=== PATIENT | male | born 1950 | race Caucasian/White ===

== ENCOUNTER 2017-12-25 16:12 | Inpatient (IN) ==
--- NOTE | 2017-12-25 17:22 | History & Physical Report ---
*Admission Date: 12/25/17 *Chief complaint: "Toe draining and smells" *History of present illness: Mr. Worley is a 67-year-old male with history of hypertension, arthritis, morbid obesity, and accidental amputation of toes 2 years ago who presents with drainage and smell coming from right foot. He reports this morning noticing redness along the end of his right foot. He suffered a traumatic lawnmower accident approximately 2 years ago where multiple toes were amputated leaving only a portion of his great toe and pinky toe on the right foot. He has been struggling with lower extreme it he edema of the right leg for the past few weeks with redness and pitting edema up to the knee. He reports noting wo rsening redness from the base of his toes distal over the past day or 2. When removing his shoe in clinic today he noted drainage coming from the end of his right great toe and a large silver dollar size purple/black lesion at the end of the toe. He reports he has had long-time drainage from a scab/callus end of that toe for over a year however the current appearance is new. His who was present with him remarks on the smell being a new finding to her recollection. Patient denies any fevers, nausea vomiting, recent antibiotics, numbness or tingling in his feet, significant pain with ambulation. Denies history of diabetes or abnormal blood sugars. Admitted to the hospital directly from clinic for further assessment, BX consultation for possible debridement and amputation. [facility] History I have reviewed the patient's past medical history: Yes Medical History: Reports:: Hypertension Amputation: Yes (Second third and fourth toe on right foot) - *Social History Smoking Status: Never smoker *Family Hx:: Diabetes, Hypertension Review of Systems - Review of Systems Review of systems:: pertinent systems reviewed and negative unless documented below Exam - *Routine HEENT Exam Head: Present: normocephalic, atraumatic Eye: Present: EOMI, PERRL ENT: Present: mucous membranes moist - *Routine Neck Exam Present: supple, full ROM. Absent: JVD - *Routine Respiratory Exam Present: CTA bilaterally. Absent: accessory muscle use, prolonged expiratory phase, wheezes, crackles - *Routine Cardiovascular Exam Present: RRR, Normal S1, Normal S2. Absent: murmur - *Routine Abdominal Exam Present: soft, normoactive bowel sounds - *Routine Rectal Exam Patient deferred: visual exam - *Routine Exam Patient deferred: penile exam - *Routine Extremities Exam Present: edema. Absent: cyanosis, clubbing Comments: right LE, erythema to mid lew, pitting edema to knee. Black necrotic lesion at tip of right great toe approximately 2-1/2 cm in diameter, serous foul-smelling drainage coming from tip of toe, large appearing callus on plantar surface of great toe, erythema to distal forefoot - *Routine Skin Exam Present: intact, erythema. Absent: cyanosis - *Routine Neurological Exam Present: alert, oriented X3, CN II-XII intact. Absent: altered mental status Assessment and Plan (1) Class 3 severe obesity due to excess calories in adult Current visit: Yes Status: Chronic Qualifiers: Serious obesity comorbidity presence: without serious comorbidity Category: Medical Code(s): E66.01 - Morbid (severe) obesity due to excess calories Complicates all aspects of care (2) Cellulitis Current visit: Yes Status: Acute Qualifiers: Site of cellulitis: extremity Site of cellulitis of extremity: toe Laterality: right Qualified Code(s): L03.031 - Cellulitis of right toe Category: Medical Code(s): L03.90 - Cellulitis, unspecified Concern for infection with erythema, warmth. Hold on antibiotics at this time as there is no systemic symptoms. -Consulted orthopedics for wound debridement and possible amputation. -For antibiotics until wound/tissue culture obtained (3) Gangrene of toe of right foot Current visit: Yes Status: Acute Category: Medical Code(s): I96 - Gangrene, not elsewhere classified Smell and appearance of toe concerning for gangrene. Orthopedics consulted as per above. Appreciate recommendations
[2017-12-25 17:38] LABS: Basophils # 0.1 K/mm3 (0-0.2); Basophils % 0.6 % (0.1-2.0); Eosinophils # 0.2 K/mm3 (0.0-0.4); Eosinophils % 1.8 % (0.1-12.0); Hematocrit 39.9 % (42.0-52.0); Hemoglobin 12.8 g/dL (14.1-18.0); Lymphocytes # 2.1 K/mm3 (0.7-4.5); Lymphocytes % 21.3 % (10-50); Mean Corpuscular HGB Conc 31.9 g/dL (31.8-35.4); Mean Corpuscular Hemoglobin 28.3 pg (27.0-31.2); Mean Corpuscular Volume 88.6 fl (80-94); Mean Platelet Volume 6.8 fl (7.4-10.4); Monocytes # 0.7 K/mm3 (0.1-1.0); Neutrophils % 69.3 % (37.0-80.0); Platelet Count 261 K/mm3 (142-424); Red Blood Count 4.51 M/mm3 (4.60-6.20)
[2017-12-25 18:03] LABS: Albumin Level 3.6 gm/dL (3.4-5.0); Albumin/Globulin Ratio 0.9 (1.1-1.8); Anion Gap 10.7 mEq/L (5-15); Bilirubin,Total 0.4 mg/dL (0.2-1.0); Globulin 4.1 gm/dl (1.3-3.2); Potassium 3.7 mmoL/L (3.5-5.1); Total Protein,Serum 7.7 gm/dL (6.4-8.2)
--- NOTE | 2017-12-25 19:33 | Consult Report ---
*Admission Date: 12/25/17 Review of Systems - Review of Systems Review of systems:: pertinent systems reviewed and negative unless documented below [facility] History I have reviewed the patient's past medical history: Yes Medical History: Reports:: Hypertension Denies:: Cancer, Diabetes Mellitus Type 1, Diabetes Mellitus Type 2, MRSA Other Surgeries: Yes: Other (right foot) Amputation: Yes (Second third and fourth toe on right foot) - *Social History Educational Level: Completed High School Smoking Status: Never smoker Alcohol Intake: never Occupational Status: retired Housing: house Household Members: spouse - Psychiatric History Expresses thoughts of harming self/others: None Suicide Plan Description: No Plan *Family Hx:: Diabetes, Hypertension Meds Home Medications Medication Instructions Recorded Confirmed Type Lisinopril/Hydrochlorothiazide 1 tab PO DAILY 12/25/17 12/25/17 History [Lisinopril-Hctz 20-25 mg Tab] Meloxicam 15 mg PO DAILY 12/25/17 12/25/17 History Allergies Allergy/AdvReac Type Severity Reaction Status Date / Time No Known Allergies Allergy Verified 12/25/17 17:36 Exam Vital signs and Labs for Last 24 Hours: Temp Pulse Resp BP Pulse Ox 98.3 F 86 16 153/73 H 96 12/25/17 17:56 12/25/17 17:56 12/25/17 17:56 12/25/17 17:56 12/25/17 17:56 Laboratory Results - last 24 hr 12/25/17 17:30: WBC 10.0, RBC 4.51 L, Hgb 12.8 L, Hct 39.9 L, MCV 88.6, MCH 28.3, MCHC 31.9, RDW 14.0, Plt Count 261, MPV 6.8 L, Neut % (Auto) 69.3, Lymph % (Auto) 21.3, [place] % (Auto) 7.0, Eos % (Auto) 1.8, Baso % (Auto) 0.6, Neut # (Auto) 7.0, Lymph # (Auto) 2.1, [place] # (Auto) 0.7, Eos # (Auto) 0.2, Baso # (Auto) 0.1 12/25/17 17:30: Sodium 139, Potassium 3.7, Chloride 102, Carbon Dioxide 30, Anion Gap 10.7, BUN 17, Creatinine 0.88, Estimated Creat Clear 74, Estimated GFR 87, Est GFR ( Amer) 105, Glucose 127 H, Calcium 9.0, Total Bilirubin 0.4, AST 13 L, ALT 22, Alkaline Phosphatase 89, Total Protein 7.7, Albumin 3.6, Globulin 4.1 H, Albumin/Globulin Ratio 0.9 L I & O for Last 24 hours: Intake & Output 12/23/17 12/24/17 12/25/17 12/26/17 11:59 11:59 11:59 11:59 Weight 309 lb 9 oz Results - Labs Result Diagrams: 12/25/17 17:30 12/25/17 17:30 Labs: Abnormal lab results 12/25/17 12/25/17 Range/Units 17:30 17:30 RBC 4.51 L (4.60-6.20) M/mm3 Hgb 12.8 L (14.1-18.0) g/dL Hct 39.9 L (42.0-52.0) % MPV 6.8 L (7.4-10.4) fl Glucose 127 H (74-106) mg/dL AST 13 L (15-37) U/L Globulin 4.1 H (1.3-3.2) gm/dl Albumin/Globulin Ratio 0.9 L (1.1-1.8) H & H 12/25/17 Range/Units 17:30 Hgb 12.8 L (14.1-18.0) g/dL Hct 39.9 L (42.0-52.0) % All other labs normal. Assessment and Plan (1) Class 3 severe obesity due to excess calories in adult Current visit: Yes Status: Chronic Qualifiers: Serious obesity comorbidity presence: without serious comorbidity Category: Medical Code(s): E66.01 - Morbid (severe) obesity due to excess calories (2) Cellulitis Current visit: Yes Status: Acute Qualifiers: Site of cellulitis: extremity Site of cellulitis of extremity: toe Laterality: right Qualified Code(s): L03.031 - Cellulitis of right toe Category: Medical Code(s): L03.90 - Cellulitis, unspecified (3) Gangrene of toe of right foot Current visit: Yes Status: Acute Category: Medical Code(s): I96 - Gangrene, not elsewhere classified - Assessment and plan all Dx Assessment and Plan for all problems:: I have reviewed the clinical findings with the patient. I have discussed the diagnosis, natural history and management options in detail including both nonsurgical and surgical. He has had a nonhealing ulcer/lesion for more than 25 years with development of gangrene at the tip of the great toe associated with cellulitis extending onto the leg. He is non-diabetic and non-smoker. I have recommended, x-ray of right foot, culture and sensitivity, nonadherent wound dressings, IV antibiotics as per Dr. Estrada. As part of further evaluation, I have recommended MRI scan of his right foot with and without contrast to evaluate for any bone involvement. Also recommend cardiology consultation for evaluation of circulation to his foot and any necessary interventions as appropriate. I have told the patient that he is likely to require surgical intervention including amputation of the great toe. All his questions were answered and he verbalized a good understanding. I would follow-up with the MRI results. Thank you for the opportunity to participate in the care of this pleasant patient.
--- NOTE | 2017-12-26 08:09 | Progress Note ---
Internal Medicine - PN: Subj *Date: 12/26/17 *Time: 08:07 Interval history: Patient rested well, has no complaints of significant pain. Orthopedic consultation note reviewed. Cardiology consultation pending. Exam Vital signs and Labs for Last 24 Hours: Temp Pulse Resp BP Pulse Ox 97.6 F 74 16 139/79 93 L 12/26/17 04:00 12/26/17 04:00 12/26/17 04:00 12/26/17 04:00 12/26/17 04:00 Laboratory Results - last 24 hr 12/25/17 17:30: WBC 10.0, RBC 4.51 L, Hgb 12.8 L, Hct 39.9 L, MCV 88.6, MCH 28.3, MCHC 31.9, RDW 14.0, Plt Count 261, MPV 6.8 L, Neut % (Auto) 69.3, Lymph % (Auto) 21.3, [place] % (Auto) 7.0, Eos % (Auto) 1.8, Baso % (Auto) 0.6, Neut # (Auto) 7.0, Lymph # (Auto) 2.1, [place] # (Auto) 0.7, Eos # (Auto) 0.2, Baso # (Auto) 0.1 12/25/17 17:30: Sodium 139, Potassium 3.7, Chloride 102, Carbon Dioxide 30, Anion Gap 10.7, BUN 17, Creatinine 0.88, Estimated Creat Clear 74, Estimated GFR 87, Est GFR ( Amer) 105, Glucose 127 H, Calcium 9.0, Total Bilirubin 0.4, AST 13 L, ALT 22, Alkaline Phosphatase 89, Total Protein 7.7, Albumin 3.6, Globulin 4.1 H, Albumin/Globulin Ratio 0.9 L I & O for Last 24 hours: Intake & Output 12/23/17 12/24/17 12/25/17 12/26/17 11:59 11:59 11:59 11:59 Intake Total 696 / 696 Balance 696 / 696 Weight 309 lb 5 oz Microbiology Reports for the Last 24 Hours: Microbiology 12/25/17 20:20 Toe,Right Great Gram Stain - Final Narrative: Patient's cardiopulmonary exam is unremarkable, he is alert, oriented, clear lungs. Heart rate regular. Abdomen soft and nontender. Left lower leg is unremarkable. Right leg in bandage. His edema in the lew is improved as he is elevated his leg in the hospital bed. I reviewed labs and preliminary culture results and x-ray reports and films. Assessment and Plan (1) Class 3 severe obesity due to excess calories in adult Current visit: Yes Status: Chronic Qualifiers: Serious obesity comorbidity presence: without serious comorbidity Category: Medical Code(s): E66.01 - Morbid (severe) obesity due to excess calories (2) Cellulitis Current visit: Yes Status: Acute Qualifiers: Site of cellulitis: extremity Site of cellulitis of extremity: toe Laterality: right Qualified Code(s): L03.031 - Cellulitis of right toe Category: Medical Code(s): L03.90 - Cellulitis, unspecified (3) Gangrene of toe of right foot Current visit: Yes Status: Acute Category: Medical Code(s): I96 - Gangrene, not elsewhere classified - Assessment and plan all Dx Assessment and Plan for all problems:: Cellulitic area on leg is improving with elevation. Patient clearly is dry gangrene, MRI pending. Patient is without white count, fever or red streaking from the foot. At this point we will hold IV antibiotics until intraoperative cultures are obtained. Again I think patient will need amputation of the great toe stump. Orthopedic evaluation pending and ongoing. Orthopedics wishes cardiology evaluation for possible angiogram. I certainly understand this thought, however patient is not diabetic and has no smoking history, and this seems like a fairly low yield evaluation.
--- NOTE | 2017-12-26 08:59 | Consult Report ---
History of Present Illness Consult date: 12/26/17 Requesting physician: Hardik Estrada Chief complaint: gangrene of right toe Additional Medical History:: 1. HTN 2. Obesity 3. Traumatic amputation of 2nd, 3rd and 4th toes with partial amputation of 1st and 4th toes due to lawnmower accident, about 1992 History of present illness: Mr. Worley is a 67-year-old male with history of hypertension, arthritis, morbid obesity, and accidental amputation of toes 2 years ago who presents with drainage and smell coming from right foot. He reports this morning noticing redness along the end of his right foot. He suffered a traumatic lawnmower accident approximately 2 years ago where multiple toes were amputated leaving only a portion of his great toe and pinky toe on the right foot. He has been struggling with lower extreme it he edema of the right leg for the past few weeks with redness and pitting edema up to the knee. He reports noting worsening redness from the base of his toes distal over the past day or 2. When removing his shoe in clinic today he noted drainage coming from the end of his right great toe and a large silver dollar size purple/black lesion at the end of the toe. He reports he has had long-time drainage from a scab/callus end of that toe for over a year however the current appearance is new. His who was present with him remarks on the smell being a new finding to her recollection. Patient denies any fevers, nausea vomiting, recent antibiotics, numbness or tingling in his feet, significant pain with ambulation. Denies history of diabetes or abnormal blood sugars. Admitted to the hospital directly from clinic for further assessment, BX consultation for possible debridement and amputation. The above per Dr. Estrada Patient denies any history of cardiac problems, TIA/CVA, blood in his bowels or urine. [facility] History Medical History: Reports:: Hypertension Denies:: Cancer, Diabetes Mellitus Type 1, Diabetes Mellitus Type 2, MRSA Other Surgeries: Yes: Other (right foot) Amputation: Yes (Second third and fourth toe on right foot) - *Social History Educational Level: Completed High School Smoking Status: Never smoker Alcohol Intake: never Occupational Status: retired Housing: house Household Members: spouse - Psychiatric History Expresses thoughts of harming self/others: None Suicide Plan Description: No Plan *Family Hx:: Diabetes, Hypertension Meds Home Medications Medication Instructions Recorded Confirmed Type Lisinopril/Hydrochlorothiazide 1 tab PO DAILY 12/25/17 12/25/17 History [Lisinopril-Hctz 20-25 mg Tab] Meloxicam 15 mg PO DAILY 12/25/17 12/25/17 History Allergies Allergy/AdvReac Type Severity Reaction Status Date / Time No Known Allergies Allergy Verified 12/25/17 17:36 Review of Systems - *Cardiovascular Denies chest pain, Denies shortness of breath with activity - *Respiratory Denies shortness of breath with activity - *Gastrointestinal Denies abdominal pain - *Genitourinary Denies blood in urine - *Musculoskeletal Reports joint pain Exam Vital signs and Labs for Last 24 Hours: Temp Pulse Resp BP Pulse Ox 98.1 F 70 20 135/70 91 L 12/26/17 08:00 12/26/17 08:00 12/26/17 08:00 12/26/17 08:00 12/26/17 08:00 Laboratory Results - last 24 hr 12/25/17 17:30: WBC 10.0, RBC 4.51 L, Hgb 12.8 L, Hct 39.9 L, MCV 88.6, MCH 28.3, MCHC 31.9, RDW 14.0, Plt Count 261, MPV 6.8 L, Neut % (Auto) 69.3, Lymph % (Auto) 21.3, [place] % (Auto) 7.0, Eos % (Auto) 1.8, Baso % (Auto) 0.6, Neut # (Auto) 7.0, Lymph # (Auto) 2.1, [place] # (Auto) 0.7, Eos # (Auto) 0.2, Baso # (Auto) 0.1 12/25/17 17:30: Sodium 139, Potassium 3.7, Chloride 102, Carbon Dioxide 30, Anion Gap 10.7, BUN 17, Creatinine 0.88, Estimated Creat Clear 74, Estimated GFR 87, Est GFR ( Amer) 105, Glucose 127 H, Calcium 9.0, Total Bilirubin 0.4, AST 13 L, ALT 22, Alkaline Phosphatase 89, Total Protein 7.7, Albumin 3.6, Globulin 4.1 H, Albumin/Globulin Ratio 0.9 L I & O for Last 24 hours: Intake & Output 12/23/17 12/24/17 12/25/17 12/26/17 11:59 11:59 11:59 11:59 Intake Total 696 / 696 Balance 696 / 696 Weight 309 lb 5 oz Microbiology Reports for the Last 24 Hours: Microbiology 12/25/17 20:20 Toe,Right Great Gram Stain - Final - *Routine Neck Exam Present: supple. Absent: JVD, carotid bruit - *Routine Respiratory Exam Present: CTA bilaterally. Absent: accessory muscle use, rales, rhonchi, wheezes - *Routine Cardiovascular Exam Present: RRR. Absent: murmur, gallop, rubs - *Routine Abdominal Exam Present: soft. Absent: tenderness, distended, guarding - *Routine Extremities Exam Present: edema. Absent: calf tenderness Comments: Right foot is wrapped in gauze. Patient does have some chronic stasis changes to the lower leg with edema and no palpable pulses of the right foot but it is warm. - *Routine Neurological Exam Present: alert, oriented X3, moving all extremities Assessment and Plan (1) Class 3 severe obesity due to excess calories in adult Current visit: Yes Status: Chronic Qualifiers: Serious obesity comorbidity presence: without serious comorbidity Category: Medical Code(s): E66.01 - Morbid (severe) obesity due to excess calories (2) Cellulitis Current visit: Yes Status: Acute Qualifiers: Site of cellulitis: extremity Site of cellulitis of extremity: toe Laterality: right Qualified Code(s): L03.031 - Cellulitis of right toe Category: Medical Code(s): L03.90 - Cellulitis, unspecified (3) Gangrene of toe of right foot Current visit: Yes Status: Acute Category: Medical Code(s): I96 - Gangrene, not elsewhere classified - Assessment and plan all Dx Assessment and Plan for all problems:: Plan to proceed with right lower extremity angiogram with possible intervention if needed. Further recommendations to follow above.
--- NOTE | 2017-12-26 16:37 | Consult Report ---
*Admission Date: 12/25/17 *Chief complaint: Right hallux gangrene *History of present illness: Patient admitted for red gangrenous right great toe with drainage. 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 He sees a seating upholsterer in [place], last seen in 2017. He states he has a history of right hallux callus with ulcer that will heal and recur. He notes symptoms started several days ago. Phone consult by Ortho, Dr. Brush for a second opinion regarding right great toe possible amputation Review of Systems - Constitutional Reports lack of energy, Denies chills - Eyes Denies blurry vision - ENT Denies dizziness - *Cardiovascular Denies shortness of breath - *Respiratory Denies shortness of breath - *Gastrointestinal Reports nausea - *Genitourinary Reports urinary frequency - *Musculoskeletal Reports deformity, Denies numbness - Integumentary/Breasts Reports hair loss, Reports change in skin color, Reports skin ulcer [facility] History Medical History: Reports:: Hypertension Denies:: Cancer, Diabetes Mellitus Type 1, Diabetes Mellitus Type 2, MRSA Other Surgeries: Yes: Other (right foot) Amputation: Yes (Second third and fourth toe on right foot) - *Social History Educational Level: Completed High School Smoking Status: Never smoker Alcohol Intake: never Occupational Status: retired Housing: house Household Members: spouse - Psychiatric History Expresses thoughts of harming self/others: None Suicide Plan Description: No Plan *Family Hx:: Diabetes, Hypertension Meds Home Medications Medication Instructions Recorded Confirmed Type Lisinopril/Hydrochlorothiazide 1 tab PO DAILY 12/25/17 12/25/17 History [Lisinopril-Hctz 20-25 mg Tab] Meloxicam 15 mg PO DAILY 12/25/17 12/25/17 History Allergies Allergy/AdvReac Type Severity Reaction Status Date / Time No Known Allergies Allergy Verified 12/25/17 17:36 Exam Vital signs and Labs for Last 24 Hours: Temp Pulse Resp BP Pulse Ox 97.6 F 74 17 135/75 98 12/26/17 15:00 12/26/17 15:25 12/26/17 15:25 12/26/17 15:25 12/26/17 15:25 Laboratory Results - last 24 hr 12/25/17 17:30: WBC 10.0, RBC 4.51 L, Hgb 12.8 L, Hct 39.9 L, MCV 88.6, MCH 28.3, MCHC 31.9, RDW 14.0, Plt Count 261, MPV 6.8 L, Neut % (Auto) 69.3, Lymph % (Auto) 21.3, [place] % (Auto) 7.0, Eos % (Auto) 1.8, Baso % (Auto) 0.6, Neut # (Au to) 7.0, Lymph # (Auto) 2.1, [place] # (Auto) 0.7, Eos # (Auto) 0.2, Baso # (Auto) 0.1 12/25/17 17:30: Sodium 139, Potassium 3.7, Chloride 102, Carbon Dioxide 30, Anion Gap 10.7, BUN 17, Creatinine 0.88, Estimated Creat Clear 74, Estimated GFR 87, Est GFR ( Amer) 105, Glucose 127 H, Calcium 9.0, Total Bilirubin 0.4, AST 13 L, ALT 22, Alkaline Phosphatase 89, Total Protein 7.7, Albumin 3.6, Globulin 4.1 H, Albumin/Globulin Ratio 0.9 L 12/26/17 08:50: ESR 34 H 12/26/17 08:50: C-Reactive Protein 4.2 H I & O for Last 24 hours: Intake & Output 12/24/17 12/25/17 12/26/17 12/27/17 11:59 11:59 11:59 11:59 Intake Total 696 / 696 Output Total 0 / 0 Balance 696 / 696 0 / 0 Weight 309 lb 5 oz 309 lb 5.007 oz Microbiology Reports for the Last 24 Hours: Microbiology 12/25/17 20:20 Toe,Right Great Gram Stain - Final - *Routine HEENT Exam Head: Present: normocephalic ENT: Present: mucous membranes moist - *Routine Neck Exam Absent: JVD - *Routine Respiratory Exam Absent: respiratory distress - *Routine Cardiovascular Exam Present: RRR - *Routine Abdominal Exam Absent: tenderness - *Routine Rectal Exam Patient deferred: visual exam - *Routine Exam Patient deferred: penile exam - *Routine Extremities Exam Present: pulses intact, amputation - *Routine Skin Exam Present: dry, wounds. Absent: intact - *Routine Neurological Exam Present: alert, oriented X3, moving all extremities, normal tone - Detailed Lower Extremity Exam Top foot image: 1 - Right hallux discolored, warm to touch. Blister noted to tip of toe with purulence and gangrenous tissue. Under the sloughing blister, intact skin 70% granular and 20% fibrotic and 10% gangrene. Wound extends to deep fascia. No tracting deep to bone. Malodor noted. Localized redness, no ascending cellulitis. Palpable pulses. Results - Labs Result Diagrams: 12/25/17 17:30 12/25/17 17:30 Labs: Abnormal lab results 12/25/17 12/25/17 12/26/17 Range/Units 17:30 17:30 08:50 RBC 4.51 L (4.60-6.20) M/mm3 Hgb 12.8 L (14.1-18.0) g/dL Hct 39.9 L (42.0-52.0) % MPV 6.8 L (7.4-10.4) fl ESR 34 H (0-20) mm/hr Glucose 127 H (74-106) mg/dL AST 13 L (15-37) U/L C-Reactive Protein (0.0-0.9) mg/L Globulin 4.1 H (1.3-3.2) gm/dl Albumin/Globulin Ratio 0.9 L (1.1-1.8) 12/26/17 Range/Units 08:50 RBC (4.60-6.20) M/mm3 Hgb (14.1-18.0) g/dL Hct (42.0-52.0) % MPV (7.4-10.4) fl ESR (0-20) mm/hr Glucose (74-106) mg/dL AST (15-37) U/L C-Reactive Protein 4.2 H (0.0-0.9) mg/L Globulin (1.3-3.2) gm/dl Albumin/Globulin Ratio (1.1-1.8) H & H 12/25/17 Range/Units 17:30 Hgb 12.8 L (14.1-18.0) g/dL Hct 39.9 L (42.0-52.0) % All other labs normal. - Diagnostic results Ankle/Foot x-ray: report reviewed, image reviewed Ankle/Foot MRI: image reviewed (No definitive OM, possible subchondral cysts at HIPJ and 1st met head) Assessment and Plan (1) Class 3 severe obesity due to excess calories in adult Current visit: Yes Status: Chronic Qualifiers: Serious obesity comorbidity presence: without serious comorbidity Category: Medical Code(s): E66.01 - Morbid (severe) obesity due to excess calories (2) Cellulitis Current visit: Yes Status: Acute Qualifiers: Site of cellulitis: extremity Site of cellulitis of extremity: toe Laterality: right Qualified Code(s): L03.031 - Cellulitis of right toe Category: Medical Code(s): L03.90 - Cellulitis, unspecified (3) Gangrene of toe of right foot Current visit: Yes Status: Acute Category: Medical Code(s): I96 - Gangrene, not elsewhere classified - Assessment and plan all Dx Assessment and Plan for all problems:: Gangrene, cellulitis, Right hallux ulcer: Revasc procedure by Dr. Light 12/26/17: 1. Three vessel run off to LE I discussed with the patient the importance of proper hygiene and maintaining a clean healthy wound bed to avoid the infection spreading after re- vascularization. The wound was cleansed with betadine. Utilizing a 15 blade, blister was popped, wound culture obtained. The wound was sharply excisionally debrided through skin into sub q layer. Biofilm, necrotic tissue and fibrotic slough were debrided. The wound did extend to deep fascia. It did not track into the bone]. There was positive purulence noted superficially. No deep purulence. Wound culture and tissue culture obtained. Sheyla-wound cellulitis noted. Non-palpable popliteal lymph nodes. Post-debridement the wound base was: 70 % granular, 20 % fibrotic,. 10% necrotic. The wound measured ~ 3 x 4 x 0.2 cm. 1. Dressing applied: betadine dry sterile dressing 2. Wound care instructions given: change dressing daily with betadine soaked Adaptic, dry sterile dressing 3. NWB in post op shoe with DME assistance 4. Monitor for infection 5. Recommend d/c on oral antibiotics 6. Follow up in Podiatry office Wedn 09/01/17
--- NOTE | 2017-12-26 17:29 | Discharge Summary ---
General - General Admission date:: 12/25/17 Discharge date: 12/26/17 HPI HPI: Mr. Worley is a 67-year-old male with history of hypertension, arthritis, morbid obesity, and accidental amputation of toes 2 years ago who presents with drainage and smell coming from right foot. He reports this morning noticing redness along the end of his right foot. He suffered a traumatic lawnmower accident approximately 2 years ago where multiple toes were amputated leaving only a portion of his great toe and pinky toe on the right foot. He has been struggling with lower extreme it he edema of the right leg for the past few weeks with redness and pitting edema up to the knee. He reports noting worsening redness from the base of his toes distal over the past day or 2. When removing his shoe in clinic today he noted drainage coming from the end of his right great toe and a large silver dollar size purple/black lesion at the end of the toe. He reports he has had long-time drainage from a scab/callus end of that toe for over a year however the current appearance is new. His who was present with him remarks on the smell being a new finding to her recollection. Patient denies any fevers, nausea vomiting, recent antibiotics, numbness or tingling in his feet, significant pain with ambulation. Denies history of diabetes or abnormal blood sugars. Admitted to the hospital directly from clinic for further assessment, BX consultation for possible debridement and amputation. Hospital Course Hospital Course: Patient was admitted, labs were done including blood cultures and wound culture. White count initially was 10,000. Given lack of fever, need to await culture results and consultation antibiotics were not started but orthopedics was consulted, recommended cardiology evaluation for lower extremity runoff testing, which was accomplished today with angiogram which was unremarkable. Also MRI was done this morning revealing no evidence of bony involvement from infectious process. Orthopedics asked podiatry to be involved, see consult note: Recommended bedside debridement which was done. Cultures taken. No evidence of bony involvement on bedside debridement procedure per podiatry. Plan will be to discharge home today with walking boot, dressing changes as instructed through podiatry, Augmentin twice daily while cultures are pending and follow-up with podiatry in 1 week. Objective Vital signs: Temp Pulse Resp BP Pulse Ox 97.6 F 74 17 135/75 98 12/26/17 15:00 12/26/17 15:25 12/26/17 15:25 12/26/17 15:25 12/26/17 15:25 Narrative: Patient is alert, pleasant. Talkative. Oropharynx clear, no JVD. Morbid obesity limits exam findings. Lungs clear, heart rate regular, abdomen soft and nontender. Extremity exam reveals unremarkable left lower extremity. Please see podiatry notes for details of right lower extremity exam and postoperative status. Results Labs on day of discharge: Labs from last 24 hours 12/26/17 12/26/17 12/25/17 08:50 08:50 17:30 WBC RBC Hgb Hct MCV MCH MCHC RDW Plt Count MPV Neut % (Auto) Lymph % (Auto) [place] % (Auto) Eos % (Auto) Baso % (Auto) Neut # (Auto) Lymph # (Auto) [place] # (Auto) Eos # (Auto) Baso # (Auto) ESR 34 H Sodium 139 Potassium 3.7 Chloride 102 Carbon Dioxide 30 Anion Gap 10.7 BUN 17 Creatinine 0.88 Estimated Creat Clear 74 Estimated GFR 87 Est GFR ( Amer) 105 Glucose 127 H Calcium 9.0 Total Bilirubin 0.4 AST 13 L ALT 22 Alkaline Phosphatase 89 C-Reactive Protein 4.2 H Total Protein 7.7 Albumin 3.6 Globulin 4.1 H Albumin/Globulin Ratio 0.9 L 12/25/17 17:30 WBC 10.0 RBC 4.51 L Hgb 12.8 L Hct 39.9 L MCV 88.6 MCH 28.3 MCHC 31.9 RDW 14.0 Plt Count 261 MPV 6.8 L Neut % (Auto) 69.3 Lymph % (Auto) 21.3 [place] % (Auto) 7.0 Eos % (Auto) 1.8 Baso % (Auto) 0.6 Neut # (Auto) 7.0 Lymph # (Auto) 2.1 [place] # (Auto) 0.7 Eos # (Auto) 0.2 Baso # (Auto) 0.1 ESR Sodium Potassium Chloride Carbon Dioxide Anion Gap BUN Creatinine Estimated Creat Clear Estimated GFR Est GFR ( Amer) Glucose Calcium Total Bilirubin AST ALT Alkaline Phosphatase C-Reactive Protein Total Protein Albumin Globulin Albumin/Globulin Ratio DS: Diagnosis - Discharge Diagnosis (1) Class 3 severe obesity due to excess calories in adult Status: Chronic (2) Cellulitis Status: Acute (3) Gangrene of toe of right foot Status: Acute Discharge Plan - Patient Discharge Instructions ACTIVITY: Continue current activity (Walking boot for ambulation, dressing treatments per podiatry note) DIET: continue same diet Patient Instructions: DI for Cellulitis -- Adult - Follow up Plan Follow up with: Audra Moreno DPM [Staff Physician] - 1 week Disposition: Home, Self-Retirement Medications: Home Medications Medication Instructions Recorded Confirmed Type Lisinopril/Hydrochlorothiazide 1 tab PO DAILY 12/25/17 12/25/17 History [Lisinopril-Hctz 20-25 mg Tab] Meloxicam 15 mg PO DAILY 12/25/17 12/25/17 History Prescriptions/Medication Reconciliation: New Amoxicillin/Potassium Clav [Augmentin 875-125 Tablet] 1 tab PO Q12H #20 tab Continue Meloxicam 15 mg PO DAILY Lisinopril/Hydrochlorothiazide [Lisinopril-Hctz 20-25 mg Tab] 1 tab PO DAILY
== END 2017-12-26 19:23 | disposition home or self-care (01) ==
LOC: 2ND → OBSVTOIN 16:40
PROVIDERS: ADMIT Internal Medicine Adolescent Medicine; ATTEND Internal Medicine Adolescent Medicine

== ENCOUNTER → 2018-01-14 07:00 | Outpatient (CLI) | payer MEDICARE, OTHER, SELFPAY ==
--- NOTE | 2018-01-14 07:01 | CA_ITS ---
PROCEDURE: 2-D M-mode and color Doppler study INDICATIONS FOR THE TEST: Chest pain COPD Heart Murmur Tobacco Smoking Palpitations Fatigue Syncope Edema Hypertension+Diabetes Mellitus Rheumatic Fever SOB+ROWE Obesity Hyperlipidemia Family History HD Additional History LUDWIN PATIENT INFORMATION HEIGHT: 69 WEIGHT:313 GENDER: Male B/P:170/87 2-D/M-MODE INTERPRETATION: 2-D MEASUREMENTS OBSERVED VALUES IN CMS Right Ventricular Dimension (RVDd) 2.2 Interventricular Septum (Thickness)(IVsd) 1.2 Left Ventricular Internal Dimensions(LVIDd) 5.0 Left Ventricular Posterior Wall (Thickness)(LVPWd) 1.0 Aortic Root 3.6 Aortic Cusp Separation 2.2 Left Atrial Dimensions (LAD) 4.0 2D 1. Left atrium is mildly enlarged, left ventricle is normal size, mild concentric left ventricular hypertrophy, visually estimated ejection fraction 55% with no regional wall motion abnormality. 2. The right atrium and right ventricle are normal size and contractility. 3. The aortic valve is minimally thickened and fibrosed. 4. The mitral and tricuspid valvular grossly normal. 5. The pulmonic valve is poorly visualized. 6. No significant pericardial effusion noted. DOPPLER INTERROGATION: Doppler interrogation of the aortic, mitral and tricuspid valvular presence of mild mitral and tricuspid regurgitation, tricuspid regurgitation jet velocity is inadequate for calculation of the right ventricular systolic pressure, grade 1 diastolic dysfunction seen with tissue Doppler evidence of raised left atrial pressure. CONCLUSION: 1. Mildly enlarged left atrium, normal left ventricular size, mild concentric left ventricular hypertrophy, visually estimated ejection fraction 55% with no regional wall motion abnormality, grade 1 diastolic dysfunction seen with tissue Doppler evidence of raised left atrial pressure. 2. Mild mitral and tricuspid regurgitation 3. No significant pericardial effusion noted.
--- NOTE | 2018-01-14 07:01 | NM_ITS ---
CARDIOLITE SPECT MYOCARDIAL PERFUSION SCAN, REST AND STRESS: EXERCISE STRESS [facility] REVIEW QGS EF AND WALL MOTION EVALUATION: QPS - PERFUSION EVALUATION HISTORY: SOB, HTN DOSE: 10.86 mCi technetium 99m mibi intravenously at rest followed by 30.5 mCi technetium 99m mibi following the intravenous ministration of 0.4 mg of Lexiscan. Resting blood pressure is 143/80. Stress blood pressure 135/77. FINDINGS: Ejection fraction is calculated to be 52%. Stress images reveal moderately decreased activity in the inferior wall while rest images reveal severely decreased activity in the inferior wall. Gated images calculated ejection fraction of 52% with significant inferior hypokinesis. 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 High risk abnormal stress test
--- NOTE | 2018-01-14 07:20 | HMH.ITSHM ---
Current Home Medications as stated by this patient Laith Worley or telephone service representative. []LISINOPRIL MELOXICAM
== END ==
PROVIDERS: PCP Nurse Practitioner Family; Visit Provider Internal Medicine
DX: E66.01 Morbid (severe) obesity due to excess calories (principal); I10 Essential (primary) hypertension; R06.09 Other forms of dyspnea; R94.31 Abnormal electrocardiogram [ECG] [EKG]; L03.031 Cellulitis of right toe
CPT/HCPCS: 78452; 93017; 93306; A9502; J2785

== ENCOUNTER 2018-03-20 09:00 | Outpatient (RCR) | payer MEDICARE, OTHER, SELFPAY ==
--- NOTE | 2018-01-08 10:47 | HMH.PTOPWND ---
Rehab Outpt Wound Evaluation Rehab OP Wound Evaluation Start: 01/08/18 10:04 Freq: Status: Active Protocol: Document 01/08/18 10:30 TONE (Rec: 01/08/18 10:47 PHORNE [id number]) Electronically Signed By Deng Guerrero, PT 01/08/18 10:30 Subjective/History History History Pt is 67 yowm who presents with c/o right LE swelling x ~ 1 yr and worse since infection of the right great toe ~ 2 wks ago. He has hx of right toes 2-4 amputated > 20 yrs ago due to a lawnmower accident. He reports no c/o numbness or tingling in the right LE and only mild pain. He has PMH of obesity, HTN, and sleep apnea. Lymphedema Eval Classification of Lymphedema Secondary Lymphedema Yes Stemmer's sign Stemmer's Sign no Stage of Lymphedema Lymphedema stages Stage I (Pitting edema, reduces w/ elevation, no fibrosis) Skin Changes Dry Skin Yes Redness Yes Pain Scale Pain Scale (0-10) 2 Affected Extremities Areas Affected by Lymphedema/Edema Right Lower Extremity Manual Lymphatic Drainage Treatment Area MLD Treatment Area Right Lower Extremity Wound Problems/Impairments Impairments Problems/Impairmments Palpation Tenderness Impaired Endurance Impaired Walking Increased Edema Lymphedema Present Subjective C/O Pain Impaired Self Care/Self Management Prognosis Rehab Potential Good Clinical Impression Consistent with Diagnosis Yes Short Term Goals Number of Weeks 4 Decreased Palpation Tenderness Yes: to min Decrease Subjective C/O Pain Yes: 1/10 Patient to Understand Lymphedema Yes Treatment and Exercises Decrease Girth Measurments by (cm) Yes: by 5 cm Tool Mechanic Goals Number of Weeks 8 Decreased Palpation Tenderness Yes: to none Decrease Subjective C/O Pain Yes: 0/10 Patient to be Ind w/ Advanced HEP Yes Patient to Adhere Lymphedema Precautions Yes Decrease Girth Measurments by (cm) Yes: by 15 cm Outpatient Therapy Plan of Care Treatment Plan May Include Therapeutic Exercise Including Home Yes Exercise Program Manual Therapy Techniques Yes Neuromuscular Re-education Yes Orthotics/Bracing/Sp
== END 2018-03-20 09:05 | disposition home or self-care (01) ==
LOC: PT 09:00
PROVIDERS: Visit Provider Podiatrist
DX: R60.0 Localized edema (principal); I89.0 Lymphedema, not elsewhere classified
CPT/HCPCS: 97140; 97162; 97760